=== PATIENT | female | born 2000 | race Caucasian/White ===

== ENCOUNTER 2022-10-24 03:13 | Inpatient (IN) ==
[2022-10-24] MEDS ORDERED: Lactated Ringers 1000 ml BAG 1,000 ML IV ONE (04:14)
[2022-10-24] MEDS ORDERED: Ondansetron 4 mg VIAL 2 MG/ML 2 ml VIAL IV ONE (04:14)
[2022-10-24 04:41] LABS: Hemoglobin 15.2 g/dL (11.5-14.3); Mean Corpuscular Hemoglobin 31.1 pg (27-33); Mean Corpuscular Hgb Conc 33.8 g/dL (31-36); Mean Corpuscular Volume 91.9 fL (80-97); Mean Platelet Volume 9.6 fL (7.5-11.2); Platelet Count 325 10^3/uL (150-450); Red Blood Count 4.89 10^6/uL (3.63-4.92); Red Cell Distribution Width 14.1 % (12-17); White Blood Count 20.2 10^3/uL (3.8-11.8)
[2022-10-24 04:59] LABS: ALT 23 U/L (7-52); AST 19 U/L (13-39); Albumin 4.8 g/dL (3.2-5.2); Albumin/Globulin Ratio 1.5 (1-3); Alkaline Phosphatase 88 U/L (35-149); Anion Gap 7 mmol/L (2-16); Blood Urea Nitrogen 14 mg/dL (6-24); C Reactive Protein 11.64 mg/L (<8.01); CO2 Carbon Dioxide 24 mmol/L (22-32); Calcium 9.7 mg/dL (8.6-10.3); Chloride 104 mmol/L (101-111); Creatinine, Serum 0.79 mg/dL (0.51-0.95); Globulin 3.3 g/dL (2-4); Glucose 106 mg/dL (70-100); Lipase 22 U/L (11.0-82.0); Potassium 3.9 mmol/L (3.5-5.0); Sodium 135 mmol/L (135-145); Total Protein 8.1 g/dL (6.4-8.9); eGFR CKD-EPI 108.4 (>60)
[2022-10-24 05:04] LABS: ABS Basophils 0.1 10^3/uL (0.0-0.1); ABS Eosinophils 0.1 10^3/uL (0.0-0.5); ABS Monocytes 1.6 10^3/uL (0.0-0.9); ABS Neutrophils 17.5 10^3/uL (1.5-7.6); Eosinophil % 0.3 %; HCG Pregnancy < 0.60 mIU/mL; Lymphocyte % 4.8 %
[2022-10-24 05:21] LABS: Urine Appearance Turbid; Urine Bilirubin Negative (Negative); Urine Blood Negative (Negative); Urine Color Yellow; Urine Glucose Negative (Negative); Urine Ketones Negative (Negative); Urine Nitrite Negative (Negative); Urine Protein Negative (Negative); Urine Specific Gravity 1.016 (1.002-1.030); Urine Urobilinogen Negative (Negative)
[2022-10-24 05:24] LABS: Urine Amorphous Crystals Present (Absent); Urine Bacteria 1+ (Absent); Urine Red Blood Cell Absent (Absent); Urine Squamous Epithelial Cell Present (Absent); Urine White Blood Cell 1+(6-10/hpf) (Absent); Urine Yeast Present (Absent)
[2022-10-24] MEDS ORDERED: LORazepam 2 mg VIAL 1 ml IV PUSH ONE ×2 (09:34→19:30)
[2022-10-24] MEDS ORDERED: Lorazepam PYXIS KEY PRN ×2 (09:34→19:30)
[2022-10-24] MEDS ORDERED: LORazepam 2 mg VIAL 1 ml ONE ×2 (09:35→15:07)
[2022-10-24] MEDS ORDERED: Iohexol 350 (CONTRAST) 500 ML MDV IV ONE (09:57)
[2022-10-24] MEDS ORDERED: ceFOXitin 1 GM in NS 0.9% 50 ML 50 ML IVPB ONE (10:35)
[2022-10-24] MEDS ORDERED: ceFOXitin 2 GM PREMIX 50 ML IVPB ONE (11:00)
[2022-10-24] MEDS ORDERED: Ondansetron 4 mg VIAL 2 MG/ML 2 ml VIAL IV PRN (12:09)
[2022-10-24] MEDS ORDERED: HYDROmorphone 1 MG/1 ML SYRINGE IV SLOW PU PRN (12:09)
[2022-10-24] MEDS ORDERED: NS 0.9% 1000 ml BAG 1,000 ML IV SCH (12:15)
[2022-10-24] MEDS ORDERED: HYDROmorphone 1 MG/1 ML SYRINGE ONE (15:06)
[2022-10-24] MEDS ORDERED: Piperacillin/Tazobac ADVAN 3.375 GM in NS 0.9% 100 ml BAG 100 ML IV SCH (17:00)
[2022-10-24] MEDS ORDERED: Bupivacaine 0.25% EPI 200,000 30 ML SDV ONE (18:10)
[2022-10-24] MEDS ORDERED: fentaNYL 250 mcg/5 ml 50 MCG/ML 5 ml VIAL (250 MCG) ONE (18:18)
[2022-10-24] MEDS ORDERED: Rocuronium 50 mg VIAL 10 mg/ml 5 ml VIAL (50 mg) ONE (18:18)
[2022-10-24] MEDS ORDERED: Propofol 10 MG/ML 20 ML BTL ONE (18:18)
[2022-10-24] MEDS ORDERED: Metoclopramide 5 MG/ML VIAL (10 mg) ONE (18:18)
[2022-10-24] MEDS ORDERED: HYDROmorphone 0.5 MG/0.5 ML SYRINGE ONE (18:18)
[2022-10-24] MEDS ORDERED: Dexamethasone IV 4 MG/ML VIAL 1 ml VIAL ONE (18:18)
[2022-10-24] MEDS ORDERED: Succinylcholine 200 mg VIAL 20 mg/ml 10 ml VIAL (200 mg) ONE (18:18)
[2022-10-24] MEDS ORDERED: Ondansetron 4 mg VIAL 2 MG/ML 2 ml VIAL ONE ×2 (18:18→20:10)
[2022-10-24] MEDS ORDERED: Midazolam 2 mg/2 ml VIAL 1 mg/ml 2 ml VIAL (2 mg) ONE (18:48)
[2022-10-24] MEDS ORDERED: Acetaminophen IV 1 GM/100ML 1,000 MG/100 ML BAG IV ONE (19:04)
[2022-10-24] MEDS ORDERED: Naloxone 0.4 mg VIAL 0.4 mg/ml 1 ml VIAL IV PRN (19:28)
[2022-10-24] MEDS ORDERED: Prochlorperazine 5 mg/ml 2 ml VIAL (10 mg) IV PRN (19:28)
[2022-10-24] MEDS ORDERED: HYDROmorphone 1 MG/1 ML SYRINGE IV PRN (19:28)
[2022-10-24] MEDS ORDERED: fentaNYL 100 mcg/2 ml 50 MCG/ML VIAL ONE (20:09)
[2022-10-24] MEDS: fentaNYL 100 mcg/2 ml 50 MCG/ML VIAL IV PRN ×2 (20:10→20:32)
[2022-10-24 21:30] VITALS: BP 111/64
== END 2022-10-24 21:33 | disposition home or self-care (01) | DRG 225 ==
LOC: ED 03:13 → EDHOLD 12:09
PROVIDERS: ADMIT Surgery; ATTEND Surgery